=== PATIENT | female | born 1980 | race Caucasian/White ===

== ENCOUNTER 2017-02-06 18:29 | Emergency (ER) | payer MEDICAID ==
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
[2017-02-06] MEDS ORDERED: Sodium Chloride 0.9% 10 ML Syringe FLUSH PRN (18:56)
[2017-02-06] MEDS ORDERED: LORazepam 2 MG/ML MDV IVPUSH ONE (18:56)
[2017-02-06 19:18] VITALS: BP 135/60
[2017-02-06 19:25] LABS: CHLORIDE,CL 105 mmol/L (98-107); SODIUM,NA 141 mmol/L (136-145)
== END 2017-02-06 20:38 | disposition home or self-care (01) ==
LOC: VM.ED 18:29
DX: F41.9 Anxiety disorder, unspecified (principal); Z88.6 Allergy status to analgesic agent; Z88.2 Allergy status to sulfonamides; Z79.899 Other long term (current) drug therapy
CPT/HCPCS: 36415; 80048; 80299; 80305; 81001; 85025; 96374; 99284; G0480; J2060